=== PATIENT | male | born 1970 | race Caucasian/White ===

== ENCOUNTER 2017-05-19 11:36 | Emergency (ER) | payer BC ==
[~2017-05-19] VITALS: Ht 177.8 cm; Wt 72.6 kg
[~2017-05-19 11:36] MED LIST: SPIR25TA PO
[2017-05-19 11:52] VITALS: BP 143/84
--- NOTE | 2017-05-19 12:47 | RAD ---
4 views left knee radiograph 05/19/2017 Clinical indication: Fall with pain on knee cap. Comparison: None. Findings: There is a mildly comminuted minimally distracted fracture of the patella with a dominant transverse fracture component extending to the articular surface with the femur. There is moderate prepatellar soft tissue thickening. There is a moderate suprapatellar joint effusion. Impression: 1. Mildly comminuted and minimally distracted fracture of the patella with intra-articular extension. 2. Moderate prepatellar soft tissue swelling and moderate suprapatellar joint effusion.
[2017-05-19] MEDS ORDERED: HYDROcodone/APAP 5/325MG 1 TAB TABLET PO ONE (13:00)
[2017-05-19] MEDS ORDERED: HYDR-971 PO (13:03)
--- NOTE | 2017-05-19 13:04 | PHYS DOC ---
Past Medical History Past Medical History: Alcoholism, Hypertension, Hepatitis, Liver Disease Additional Past Medical Histor: HEPC, LIVER CIRRHOSIS Past Surgical History: Other Additional Past Surgical Histo: paracentesis Alcohol Use: Sober Drug Use: None Adult General Chief Complaint Chief Complaint: KNEE INJURY HPI HPI Patient is a 47 year old male presents to the emergency department stating that he fell on his left knee yesterday. He states when he fell he landed on the concrete. He states that knee pain since the incident. He states he has increased pain with trying to straighten the leg. He states he cannot straighten the leg. He is unable to bear weight on the left leg. He states he has numbness and tingling into the toes. Patient does have swelling noted into the lower leg. Peripheral pulses are 2+ cap refill brisk less than 2 seconds. Patient has not taken anything for pain or discomfort. Review of Systems Review of Systems Constitutional: Denies fever or chills [] Eyes: Denies change in visual acuity, redness, or eye pain [] HENT: Denies nasal congestion or sore throat [] Respiratory: Denies cough or shortness of breath [] Cardiovascular: No additional information not addressed in HPI [] GI: Denies abdominal pain, nausea, vomiting, bloody stools or diarrhea [] : Denies dysuria or hematuria [] Musculoskeletal: Denies back pain. Complaining of left knee pain Integument: Denies rash or skin lesions [] Neurologic: Denies headache, focal weakness or sensory changes [] Endocrine: Denies polyuria or polydipsia [] All other systems were reviewed and found to be within normal limits, except as documented in this note. Allergies Allergies Allergies Coded Allergies Type Severity Reaction Last Updated Verified codeine Allergy Intermediate 05/10/17 Yes Physical Exam Physical Exam Constitutional: Well developed, well nourished, no acute distress, non-toxic appearance. [] HENT: Normocephalic, atraumatic, bilateral external ears normal, oropharynx moist, no oral exudates, nose normal. [] Eyes: PERRLA, EOMI, conjunctiva normal, no discharge. [] Neck: Normal range of motion, no tenderness, supple, no stridor. [] Cardiovascular:Heart rate regular rhythm Lungs & Thorax: Bilateral breath sounds clear to auscultation [] Skin: Warm, dry, no erythema, no rash. [] Extremities: Left knee tenderness noted over the patella, no cyanosis, no clubbing, ROM intact, no edema. Peripheral pulses 2+ cap refill brisk less than 2 seconds. Neurologic: Alert and oriented X 3, normal motor function, normal sensory function, no focal deficits noted. [] Psychologic: Affect normal, judgement normal, mood normal. [] Current Patient Data Vital Signs Vital Signs Date Time Temp Pulse Resp B/P (MAP) Pulse Ox O2 Delivery O2 Flow Rate FiO2 05/19/17 11:52 98.6 100 22 94 Room Air 98.6 EKG EKG [] Radiology/Procedures Radiology/Procedures [][facility] [address] [place] [address] IMAGING REPORT Signed PATIENT: DOM MON ACCOUNT: [id number] : 1970 LOCATION: ER AGE: 47 SEX: M EXAM STATUS: REG ER ORD. PHYSICIAN: LUIS JOVEL APRN REASON: unable to bear wieght and pain PROCEDURE: KNEE LEFT 4V 4 views left knee radiograph 05/19/2017 Clinical indication: Fall with pain on knee cap. Comparison: None. Findings: There is a mildly comminuted minimally distracted fracture of the patella with a dominant transverse fracture component extending to the articular surface with the femur. There is moderate prepatellar soft tissue thickening. There is a moderate suprapatellar joint effusion. Impression: 1. Mildly comminuted and minimally distracted fracture of the patella with intra-articular extension. 2. Moderate prepatellar soft tissue swelling and moderate suprapatellar joint effusion. DICTATED and SIGNED BY: ABIGAIL PATE MD DATE: 05/19/17 1240 CC: LUIS JOVEL APRN; NO PCP ~ Course & Med Decision Making Course & Med Decision Making Pertinent Labs and Imaging studies reviewed. (See chart for details) Radiology patient is a mildly comminuted and minimally distracted fracture of the patella with intra-articular extension. Also states that there is moderate prepatellar soft tissue swelling and moderate suprapatellar joint effusion. Patient was provided with hydrocodone here in the emergency department. He'll be provided with a knee immobilizer and crutches with recommendations to follow up with orthopedic in the next 3-5 days. Signs and symptoms return back to respond has been provided. Patient was also instructed to use ice packs on 20 minutes off 20 minutes several times daily elevation as much as possible. I've spoken with the patient and/or caregivers. I've explained the patient's condition, diagnosis and treatment plan based on information available to me at this time. I've answered the patient's and/or caregivers questions and addressed any concerns. The patient and/or caregivers have a good understanding the patient's diagnosis, condition and treatment plan as can be expected at this point. Vital signs have been stabilized. The patient's condition is stable for discharge from the emergency department. The patient will pursue further outpatient evaluation with her primary care provider or other designated consulting physician as outlined in the discharge instructions. Patient and/or caregivers are agreeable to this plan of care and follow-up instructions have been explained in detail. The patient and/or caregivers have received these instructions in written format and expressed understanding of these discharge instructions. The patient and her caregivers are aware that if any significant change in condition or worsening of symptoms should prompt him to immediately return to this of the closest emergency department. If an emergent department is not readily available I would encourage him to call 911. [] Dragon Disclaimer Dragon Disclaimer This electronic medical record was generated, in whole or in part, using a voice recognition dictation system. Departure Departure Impression: Primary Impression: Patella fracture Disposition: HOME, SELF-CARE Condition: STABLE Referrals: NO PCP (PCP) NAM MCKEON MD Patient Instructions: Crutch Use, [id number], Knee Immobilizer, [id number] , Patellar Fracture, Adult Additional Instructions: Activity as tolerated Wear the knee immobilizer until you followup with orthopedic Ice packs on 20 minutes and off 20 minutes several times a day Elevation as much as possible Odd will cause drowsiness do not take if you need to be alert and oriented Followup with orthopedic in 3-5 days Return to emergency department as needed for signs and symptoms that become worse Scripts Hydrocodone/Apap 5-325 (NORCO 5-325 TABLET) 1 Each Tablet 1 TAB PO PRN Q6HRS Y for PAIN, #20 TAB 0 Refills Prov: LUIS JOVEL COIL INSPECTOR 05/19/17 Problem Qualifiers Primary Impression: Patella fracture Encounter type: initial encounter Fracture type: closed Fracture alignment : nondisplaced Laterality: left LUIS JOVEL APRN May 19, 2017 13:04
== END 2017-05-19 13:18 | disposition home or self-care (01) ==
LOC: ER 11:36
DX: S82.045A Nondisplaced comminuted fracture of left patella, initial encounter for closed fracture (principal); I10 Essential (primary) hypertension; Z88.5 Allergy status to narcotic agent; W18.39XA Other fall on same level, initial encounter; Y93.89 Activity, other specified; Y99.8 Other external cause status; Y92.89 Other specified places as the place of occurrence of the external cause
CPT/HCPCS: 29505; 73564; 99284-25

== ENCOUNTER 2017-05-25 20:47 | Inpatient (IN) | payer BC ==
[~2017-05-25] VITALS: Ht 177.8 cm; Wt 76.7 kg
[~2017-05-25 20:47] MED LIST changes: +HYDR-971 PO
[2017-05-25] MEDS ORDERED: KETOROLAC 30 MG/ML INJ. IV ONE (21:45)
[2017-05-25] MEDS ORDERED: IV NORMAL SALINE 1000ML BAG 1,000 ML IV SCH (21:45)
[2017-05-25 21:48] LABS: BASO % 0 % (0-3); EOS % 1 % (0-3); HEMATOCRIT 41.4 % (39.0-53.0); HEMOGLOBIN 14.5 g/dL (13.0-17.5); LYMPH # 1.6 x10^3/uL (1.0-4.8); LYMPH % 17 % (24-48); MEAN CORPUSCULAR HEMOGLOBIN 35 pg (25-35); MEAN CORPUSCULAR HGB CONC 35 g/dL (31-37); MEAN CORPUSCULAR VOLUME 100 fL (79-100); MONO % 8 % (0-9); NEUT % 74 % (31-73); PLATELET COUNT 135 x10^3/uL (140-400); RED BLOOD COUNT 4.16 x10^6/uL (4.30-5.70); RED CELL DISTRIBUTION WIDTH 13.9 % (11.5-14.5); WHITE BLOOD COUNT 9.5 x10^3/uL (4.0-11.0)
[2017-05-25 21:50] LABS: BILIRUBIN,URINE NEGATIVE (NEG); GLUCOSE,URINE NEGATIVE (NEG); NITRITE,URINE NEGATIVE (NEG); PROTEIN,URINE NEGATIVE (NEG-TRACE)
[2017-05-25 21:57] LABS: CALCIUM 8.6 mg/dL (8.5-10.1); CREATININE 0.7 mg/dL (0.7-1.3); GFR 119.9; POTASSIUM 4.2 mmol/L (3.5-5.1)
[2017-05-25 22:00] LABS: BACTERIA,URINE 0 /HPF (0-FEW); RBC,URINE 0 /HPF (0-2); SQUAMOUS EPITHELIAL CELL,UR OCC /LPF; WBC,URINE OCC /HPF (0-4)
[2017-05-25 22:03] LABS: ALBUMIN 2.2 g/dL (3.4-5.0); ALBUMIN/GLOBULIN RATIO 0.4 (1.0-1.7); TOTAL BILIRUBIN 1.9 mg/dL (0.2-1.0); TOTAL PROTEIN 8.4 g/dL (6.4-8.2)
[2017-05-25] MEDS ORDERED: IOHEXOL 300 MG/ML 100ML VIAL. IV ONE (22:15)
[2017-05-25] MEDS ORDERED: CONTRAST GIVEN MC PRN (22:15)
[2017-05-25 22:17] LABS: BARBITURATES NEG (NEG); BENZODIAZEPINES NEG (NEG); CANNABINOIDS POS (NEG); COCAINE NEG (NEG); METHADONE NEG (NEG); OPIATES POS (NEG); PHENCYCLIDINE NEG (NEG)
--- NOTE | 2017-05-25 22:42 | RAD ---
CT scan of the abdomen and pelvis with contrast 05/25/2017 CLINICAL HISTORY: Abdominal pain and distention. Hepatitis C. Cirrhosis. Technique: After the intravenous administration of 75 cc of Omnipaque 300, contiguous, 5 mm axial sections were obtained through the abdomen and pelvis. One or more of the following individualized dose reduction techniques were utilized for this study: 1. Automated exposure control. 2. Adjustment of the mA and/or kV according to patient size. 3. Use of iterative reconstruction technique. FINDINGS: Images through the lung bases demonstrate minimal dependent subsegmental atelectasis bilaterally. The liver has a nodular contour consistent with cirrhosis. The spleen, pancreas, adrenal glands and kidneys are within normal limits. Mild to moderate atherosclerotic plaque formation is seen involving the abdominal aorta. The abdominal aorta tapers normally. The gallbladder slightly contracted. A large amount of ascites is seen throughout the abdomen. There is no evidence of bowel obstruction. The appendix is partially visualized and is within normal limits. Images through the pelvis demonstrate the urinary bladder to be contracted. Calcifications are seen within the prostate gland. A large amount of ascites is seen throughout the pelvis. Minimal S-shaped curvature of the thoracolumbar spine is seen. Degenerative changes are seen involving lower thoracic and throughout the lumbar spine. IMPRESSION: Findings consistent with cirrhosis. Large amount of ascites is seen throughout the abdomen and pelvis. Electronically signed by: Jose Saucedo MD (05/25/2017 10:39 PM) [facility]
[2017-05-26] VITALS (13 sets, daily range): BP systolic 111–173; BP diastolic 74–106
[2017-05-26] MEDS ORDERED: ONDANSETRON PF 4 MG/2 ML VIAL. IV PRN (01:00)
[2017-05-26] MEDS: IV NORMAL SALINE 1000ML BAG 1,000 ML IV SCH ×4 (02:01→23:11)
[2017-05-26] MEDS: MORPHINE SULFATE 2 MG/ML DISP.SYRIN. IV PRN ×2 (02:02→05:29)
--- NOTE | 2017-05-26 08:52 | PDOC1 ---
History and Physical Date of Admission Date of Admission DATE: 05/26/17 TIME: 08:50 History of Present Illness History of Present Illness ncreasing abd distention, BLE swelling, decreased appetite, and constipation ( last BM 4 days ago) over the past few days. Stopped drinking a few weeks ago, previously was drinking 24oz of 10.5% alcohol daily. No n/v, hematemesis, dysphagia, diarrhea, hematochezia, melena. Occasional heartburn, untreated, No previous colonoscopy. No gallbladder or pancreatic history. PMH: Hep C, substance abuse, cirrhosis/ascites, GERD, HSV, paracentesis FH: Family History: Other (adopted) Social History: Smoke: 1 pack per day ALCOHOL: other (sober a few weeks, h/o alcoholism) Drugs: Marijuana ROS: GEN: Denies fevers, chills, sweats HEENT: Denies blurred vision, sore throat CV: Denies chest pain RESP: Denies shortness of air, cough GI: Per HPI : Denies hematuria, dysuria ENDO: +fluctuating weight NEURO: Denies confusion, dizziness MSK: +BLE swelling SKIN: +pruritus Reason for Visit: seen in ER with increased abdominal distension, leg edema Past Medical History GI: Constipation, Other Past Surgical History Past Surgical History: No pertinent history Family History Family History: No Significant Social History ALCOHOL: other Drugs: Marijuana Current Medications Current Medications Current Medications Sodium Chloride 1,000 ml @ 999 mls/hr Q1H1M IV Last administered on 21:54; Start 05/25/17 at 21:45; Stop 05/25/17 at 22:45; Status DC Ketorolac Tromethamine (Toradol) 15 mg 1X ONCE IV Last administered on 21:54; Start 05/25/17 at 21:45; Stop 05/25/17 at 21:46; Status DC Iohexol (Omnipaque 300 Mg/ml) 75 ml 1X ONCE IV Last administered on 22:16; Start 05/25/17 at 22:15; Stop 05/25/17 at 22:16; Status DC Info (Do NOT chart on this entry -- for MONITORING) 1 each PRN DAILY PRN MC SEE COMMENTS; Start 05/25/17 at 22:15; Stop 05/27/17 at 22:14 Ondansetron HCl (Zofran) 4 mg PRN Q8HRS PRN IV NAUSEA/VOMITING; Start at 01:00; Stop 05/27/17 at 00:59 Morphine Sulfate 2 mg PRN Q2HR PRN IV PAIN Last administered on 05/26/17 05: 29; Start 05/26/17 at 01:00; Stop 05/27/17 at 00:59 Sodium Chloride 1,000 ml @ 150 mls/hr Q6H40M IV Last administered on 02:01; Start 05/26/17 at 01:00; Stop 05/27/17 at 00:59 Active Scripts Active [place] 5-325 Tablet (Acetaminophen/Hydrocodone Bitart) 1 Each Tablet 1 Tab PO PRN Q6HRS PRN Aldactone (Spironolactone) 25 Mg Tablet 100 Mg PO DAILY 30 Days Allergies Allergies: Coded Allergies: codeine (Verified Allergy, Intermediate, 05/10/17) chest pain Physical Exam Physical Exam General: Alert, Oriented X3, Cooperative, No acute distress HEENT: Other (multiple bumps like scarred acne o n face, neck, trunk and nape) Lungs: Clear to auscultation, Normal air movement Heart: S1S2 Cardiovascular: S1, S2 Breasts: Normal, Rt breast nml w/o mass, Lt breast nml w/o mass, Nipples normal Abdomen: Soft, Other (Rt sided band aid from large vol paracentesis, moderate tendermess, no guarding) Extremities: No clubbing, No cyanosis, No edema, Normal pulses, No tenderness/ swelling Skin: No rashes, No breakdown, No significant lesion Neuro: Normal gait, Normal speech, Strength at 5/5 X4 ext, Normal tone, Sensation intact, Cranial nerves 3-12 NL, Reflexes 2+ Psych/Mental Status: Mental status NL, Mood NL Patient History: Unknown (Patient is adopted and does not know any biological family) Problems: Vitals Vitals Vital Signs Date Time Temp Pulse Resp B/P (MAP) Pulse Ox O2 Delivery O2 Flow Rate FiO2 05/26/17 06:50 98.1 71 18 116/74 (88) 98 Room Air 98.1 Labs Labs Laboratory Tests Test 05/25/17 20:55 05/25/17 21:09 Urine Collection Type Unknown Urine Color Bonnie Urine Clarity Clear Urine pH 6.0 Urine Specific Edison >=1.030 Urine Protein Negative mg/dL (NEG-TRACE) Urine Glucose (UA) Negative mg/dL (NEG) Urine Ketones (Stick) Negative mg/dL (NEG) Urine Blood Negative (NEG) Urine Nitrite Negative (NEG) Urine Bilirubin Negative (NEG) Urine Urobilinogen Dipstick 1.0 mg/dL (0.2 mg/dL) Urine Leukocyte Esterase Trace (NEG) Urine RBC 0 /HPF (0-2) Urine WBC Occ /HPF (0-4) Urine Squamous Epithelial Cells Occ /LPF Urine Amorphous Sediment Present /HPF Urine Bacteria 0 /HPF (0-FEW) Urine Hyaline Casts Occasional /HPF Urine Mucus Mod /LPF Urine Opiates Screen Pos (NEG) Urine Methadone Screen Neg (NEG) Urine Barbiturates Neg (NEG) Urine Phencyclidine Screen Neg (NEG) Urine Amphetamine/Methamphetamine Neg (NEG) Urine Benzodiazepines Screen Neg (NEG) Urine Cocaine Screen Neg (NEG) Urine Cannabinoids Screen Pos (NEG) Urine Ethyl Alcohol Neg (NEG) White Blood Count 9.5 x10^3/uL (4.0-11.0) Red Blood Count 4.16 x10^6/uL (4.30-5.70) Hemoglobin 14.5 g/dL (13.0-17.5) Hematocrit 41.4 % (39.0-53.0) Mean Corpuscular Volume 100 fL (79-100) Mean Corpuscular Hemoglobin 35 pg (25-35) Mean Corpuscular Hemoglobin Concent 35 g/dL (31-37) Red Cell Distribution Width 13.9 % (11.5-14.5) Platelet Count 135 x10^3/uL (140-400) Neutrophils (%) (Auto) 74 % (31-73) Lymphocytes (%) (Auto) 17 % (24-48) Monocytes (%) (Auto) 8 % (0-9) Eosinophils (%) (Auto) 1 % (0-3) Basophils (%) (Auto) 0 % (0-3) Neutrophils # (Auto) 7.0 x10^3uL (1.8-7.7) Lymphocytes # (Auto) 1.6 x10^3/uL (1.0-4.8) Monocytes # (Auto) 0.8 x10^3/uL (0.0-1.1) Eosinophils # (Auto) 0.1 x10^3/uL (0.0-0.7) Basophils # (Auto) 0.0 x10^3/uL (0.0-0.2) Sodium Level 129 mmol/L (136-145) Potassium Level 4.2 mmol/L (3.5-5.1) Chloride Level 97 mmol/L (98-107) Carbon Dioxide Level 28 mmol/L (21-32) Anion Gap 4 (6-14) Blood Urea Nitrogen 18 mg/dL (8-26) Creatinine 0.7 mg/dL (0.7-1.3) Estimated GFR (Cockcroft-Gault) 119.9 BUN/Creatinine Ratio 26 (6-20) Glucose Level 97 mg/dL (70-99) Calcium Level 8.6 mg/dL (8.5-10.1) Total Bilirubin 1.9 mg/dL (0.2-1.0) Aspartate Amino Transf (AST/SGOT) 83 U/L (15-37) Alanine Aminotransferase (ALT/SGPT) 60 U/L (16-63) Alkaline Phosphatase 125 U/L (46-116) Total Protein 8.4 g/dL (6.4-8.2) Albumin 2.2 g/dL (3.4-5.0) Albumin/Globulin Ratio 0.4 (1.0-1.7) Lipase 189 U/L (73-393) Laboratory Tests Test 05/25/17 20:55 05/25/17 21:09 Urine Collection Type Unknown Urine Color Bonnie Urine Clarity Clear Urine pH 6.0 Urine Specific Edison >=1.030 Urine Protein Negative mg/dL (NEG-TRACE) Urine Glucose (UA) Negative mg/dL (NEG) Urine Ketones (Stick) Negative mg/dL (NEG) Urine Blood Negative (NEG) Urine Nitrite Negative (NEG) Urine Bilirubin Negative (NEG) Urine Urobilinogen Dipstick 1.0 mg/dL (0.2 mg/dL) Urine Leukocyte Esterase Trace (NEG) Urine RBC 0 /HPF (0-2) Urine WBC Occ /HPF (0-4) Urine Squamous Epithelial Cells Occ /LPF Urine Amorphous Sediment Present /HPF Urine Bacteria 0 /HPF (0-FEW) Urine Hyaline Casts Occasional /HPF Urine Mucus Mod /LPF Urine Opiates Screen Pos (NEG) Urine Methadone Screen Neg (NEG) Urine Barbiturates Neg (NEG) Urine Phencyclidine Screen Neg (NEG) Urine Amphetamine/Methamphetamine Neg (NEG) Urine Benzodiazepines Screen Neg (NEG) Urine Cocaine Screen Neg (NEG) Urine Cannabinoids Screen Pos (NEG) Urine Ethyl Alcohol Neg (NEG) White Blood Count 9.5 x10^3/uL (4.0-11.0) Red Blood Count 4.16 x10^6/uL (4.30-5.70) Hemoglobin 14.5 g/dL (13.0-17.5) Hematocrit 41.4 % (39.0-53.0) Mean Corpuscular Volume 100 fL (79-100) Mean Corpuscular Hemoglobin 35 pg (25-35) Mean Corpuscular Hemoglobin Concent 35 g/dL (31-37) Red Cell Distribution Width 13.9 % (11.5-14.5) Platelet Count 135 x10^3/uL (140-400) Neutrophils (%) (Auto) 74 % (31-73) Lymphocytes (%) (Auto) 17 % (24-48) Monocytes (%) (Auto) 8 % (0-9) Eosinophils (%) (Auto) 1 % (0-3) Basophils (%) (Auto) 0 % (0-3) Neutrophils # (Auto) 7.0 x10^3uL (1.8-7.7) Lymphocytes # (Auto) 1.6 x10^3/uL (1.0-4.8) Monocytes # (Auto) 0.8 x10^3/uL (0.0-1.1) Eosinophils # (Auto) 0.1 x10^3/uL (0.0-0.7) Basophils # (Auto) 0.0 x10^3/uL (0.0-0.2) Sodium Level 129 mmol/L (136-145) Potassium Level 4.2 mmol/L (3.5-5.1) Chloride Level 97 mmol/L (98-107) Carbon Dioxide Level 28 mmol/L (21-32) Anion Gap 4 (6-14) Blood Urea Nitrogen 18 mg/dL (8-26) Creatinine 0.7 mg/dL (0.7-1.3) Estimated GFR (Cockcroft-Gault) 119.9 BUN/Creatinine Ratio 26 (6-20) Glucose Level 97 mg/dL (70-99) Calcium Level 8.6 mg/dL (8.5-10.1) Total Bilirubin 1.9 mg/dL (0.2-1.0) Aspartate Amino Transf (AST/SGOT) 83 U/L (15-37) Alanine Aminotransferase (ALT/SGPT) 60 U/L (16-63) Alkaline Phosphatase 125 U/L (46-116) Total Protein 8.4 g/dL (6.4-8.2) Albumin 2.2 g/dL (3.4-5.0) Albumin/Globulin Ratio 0.4 (1.0-1.7) Lipase 189 U/L (73-393) Images Images REASON: ap PROCEDURE: CT ABD PELV W/ IV CONTRST ONLY CT scan of the abdomen and pelvis with contrast 05/25/2017 CLINICAL HISTORY: Abdominal pain and distention. Hepatitis C. Cirrhosis. Technique: After the intravenous administration of 75 cc of Omnipaque 300, contiguous, 5 mm axial sections were obtained through the abdomen and pelvis. One or more of the following individualized dose reduction techniques were utilized for this study: 1. Automated exposure control. 2. Adjustment of the mA and/or kV according to patient size. 3. Use of iterative reconstruction technique. FINDINGS: Images through the lung bases demonstrate minimal dependent subsegmental atelectasis bilaterally. The liver has a nodular contour consistent with cirrhosis. The spleen, pancreas, adrenal glands and kidneys are within normal limits. Mild to moderate atherosclerotic plaque formation is seen involving the abdominal aorta. The abdominal aorta tapers normally. The gallbladder slightly contracted. A large amount of ascites is seen throughout the abdomen. There is no evidence of bowel obstruction. The appendix is partially visualized and is within normal limits. Images through the pelvis demonstrate the urinary bladder to be contracted. Calcifications are seen within the prostate gland. A large amount of ascites is seen throughout the pelvis. Minimal S-shaped curvature of the thoracolumbar spine is seen. Degenerative changes are seen involving lower thoracic and throughout the lumbar spine. IMPRESSION: Findings consistent with cirrhosis. Large amount of ascites is seen throughout the abdomen and pelvis. Electronically signed by: Jose Del Rio MD (05/25/2017 10:39 PM) [facility] DICTATED and SIGNED BY: JOSE DEL RIO MD DATE: 05/25/17 2234 CC: LEXIS RINCON MD; NO PCP ~ VTE Prophylaxis Ordered VTE Prophylaxis Devices: No VTE Pharmacological Prophylaxi: Yes Assessment/Plan Assessment/Plan Admitting Diagnosis 1. ascites , needs paracentesis for massive ascites (drained > 9L 05/11/17) 2 Cirrhosis, with HEp c and ETOH 3. Thrombocytopenia with cirrhosis 4, Hyponatremia with cirrhosis 5 Mod to severe PCM 6. Leg swelling 7. THC Abuse 8. tobacco abuse 9. hx alcohol abuse DARRELL AGUDELO MD May 26, 2017 08:52
--- NOTE | 2017-05-26 09:38 | PDOC ---
Subjective: Subjective: Has been taking Aldactone 100mg QD, abd distention and BLE swelling (left>right ) returned. Fell and broke patella (left) last week, says was seen at [facility] (also has an ER note from here on 05/19). Says not drinking alcohol - tells me last drink in December, inconsistent w/ previous history. Decreased PO intake, some constipation. Objective: Objective: 47 y/o male, see GI consult from 05/11/17. H/o cirrhosis and ascites, Hep C and alcohol. Previous paracentesis, last on 05/11, removed 9.2L. Vital Signs: Vital Signs Date Time Temp Pulse Resp B/P (MAP) Pulse Ox O2 Delivery O2 Flow Rate FiO2 05/26/17 06:50 98.1 71 18 116/74 (88) 98 Room Air 98.1 Labs: Laboratory Tests Test 05/25/17 20:55 05/25/17 21:09 Urine Collection Type Unknown Urine Color Bonnie Urine Clarity Clear Urine pH 6.0 Urine Specific [place] >=1.030 Urine Protein Negative mg/dL Urine Glucose (UA) Negative mg/dL Urine Ketones (Stick) Negative mg/dL Urine Blood Negative Urine Nitrite Negative Urine Bilirubin Negative Urine Urobilinogen Dipstick 1.0 mg/dL Urine Leukocyte Esterase Trace Urine RBC 0 /HPF Urine WBC Occ /HPF Urine Squamous Epithelial Cells Occ /LPF Urine Amorphous Sediment Present /HPF Urine Bacteria 0 /HPF Urine Hyaline Casts Occasional /HPF Urine Mucus Mod /LPF Urine Opiates Screen Pos Urine Methadone Screen Neg Urine Barbiturates Neg Urine Phencyclidine Screen Neg Urine Amphetamine/Methamphetamine Neg Urine Benzodiazepines Screen Neg Urine Cocaine Screen Neg Urine Cannabinoids Screen Pos Urine Ethyl Alcohol Neg White Blood Count 9.5 x10^3/uL Red Blood Count 4.16 x10^6/uL Hemoglobin 14.5 g/dL Hematocrit 41.4 % Mean Corpuscular Volume 100 fL Mean Corpuscular Hemoglobin 35 pg Mean Corpuscular Hemoglobin Concent 35 g/dL Red Cell Distribution Width 13.9 % Platelet Count 135 x10^3/uL Neutrophils (%) (Auto) 74 % Lymphocytes (%) (Auto) 17 % Monocytes (%) (Auto) 8 % Eosinophils (%) (Auto) 1 % Basophils (%) (Auto) 0 % Neutrophils # (Auto) 7.0 x10^3uL Lymphocytes # (Auto) 1.6 x10^3/uL Monocytes # (Auto) 0.8 x10^3/uL Eosinophils # (Auto) 0.1 x10^3/uL Basophils # (Auto) 0.0 x10^3/uL Sodium Level 129 mmol/L Potassium Level 4.2 mmol/L Chloride Level 97 mmol/L Carbon Dioxide Level 28 mmol/L Anion Gap 4 Blood Urea Nitrogen 18 mg/dL Creatinine 0.7 mg/dL Estimated GFR (Cockcroft-Gault) 119.9 BUN/Creatinine Ratio 26 Glucose Level 97 mg/dL Calcium Level 8.6 mg/dL Total Bilirubin 1.9 mg/dL Aspartate Amino Transf (AST/SGOT) 83 U/L Alanine Aminotransferase (ALT/SGPT) 60 U/L Alkaline Phosphatase 125 U/L Total Protein 8.4 g/dL Albumin 2.2 g/dL Albumin/Globulin Ratio 0.4 Lipase 189 U/L Imaging: CT A/P 05/25/17 IMPRESSION: Findings consistent with cirrhosis. Large amount of ascites is seen throughout the abdomen and pelvis. Abd US 05/11/17 IMPRESSION: 1. The gallbladder is filled with sludge. Gallbladder wall thickening is nonspecific and most likely reflects liver disease. Correlate for evidence of infection to exclude cholecystitis. 2. Diffuse hepatic steatosis and cirrhotic change. 3. Small to moderate perihepatic ascites. PE: GEN: NAD, standing in room (says doesn't want to sit) LUNGS: clear HEART: RRR ABD: significantly distended, tight EXTREMITY: LLE edema - prominent from knee to foot, NEURO/PSYCH: A & O 3 A/P: Cirrhosis, ascites -Hep C, alcohol -last paracentesis 05/11, 9.2 L removed, sent home on Aldactone (says taking 100mg QD) -bili 1.9, AP 125, plt 136 -imaging above, AFP previously WNL Left patellar fracture, LE edema (left>right) -per primary Hyponatremia -- Check ammonia, also INR to calculate MELD. Ate breakfast, make NPO, ask for repeat paracentesis. Reviewed w/ Dr. Chaudhari - resume Aldactone 100mg QD. ?TIPS candidate MELD (w/ sodium) = 21 (19.6% 3 month mortality). MANUELITO BRISCOE May 26, 2017 09:38
[2017-05-26 09:59] LABS: INR 1.6 (0.8-1.1); PROTHROMBIN TIME PATIENT 18.3 SEC (11.7-14.0)
[2017-05-26] MEDS: SPIRONOLACTONE 25 MG TABLET PO SCH (11:00)
[2017-05-26] MEDS ORDERED: MORPHINE SULFATE 10 MG/ML VIAL. ONE (13:34)
[2017-05-26] MEDS ORDERED: LIDOCAINE 1% / SOD BICARB 8.4% 20 ML VIAL. IJ ONE ×2 (13:35→14:00)
[2017-05-26] MEDS ORDERED: MORPHINE SULFATE 4 MG/ML DISP.SYRIN. IV ONE (13:38)
[2017-05-26] MEDS ORDERED: MORPHINE SULFATE 10 MG/ML VIAL. IV ONE (13:45)
[2017-05-26] MEDS ORDERED: ALBUMIN HUMAN 25% 200 ML IV ONE (14:34)
[2017-05-26] MEDS ORDERED: ALBUMIN HUMAN 25% 100 ML IV ONE ×2 (14:35→15:45)
[2017-05-26] MEDS: NICOTINE 21MG PATCH. TD SCH (15:28)
[2017-05-26] MEDS: HYDROcodone/APAP 5/325MG 1 TAB TABLET PO PRN (15:29)
--- NOTE | 2017-05-26 16:47 | RAD ---
Ultrasound-guided paracentesis 05/26/2017 3:35 PM Procedure: Informed consent was obtained. A timeout procedure was performed. Sonographic evaluation of the abdomen was performed demonstrating . The e right lower quadrant was prepped and draped in sterile fashion. 1% lidocaine without epinephrine was administered for local anesthesia. Real-time ultrasonographic guidance was used in passing a 5 Bulgarian Yueh catheter into the fluid collection. 9.1 L of serous ascites was removed. The catheter was removed and pressure held to achieve hemostasis. A sterile dressing was applied. Impression: Successful ultrasound-guided paracentesis
[2017-05-26] MEDS ORDERED: ACETAMINOPHEN 325 MG TABLET. PO PRN (20:45)
[2017-05-27] MEDS: HYDROcodone/APAP 5/325MG 1 TAB TABLET PO PRN ×4 (01:58→20:34)
[2017-05-27 03:00] VITALS: BP 143/89
[2017-05-27 07:00] VITALS: BP 120/84
[2017-05-27] MEDS: NICOTINE 21MG PATCH. TD SCH (09:17)
[2017-05-27] MEDS: SPIRONOLACTONE 25 MG TABLET PO SCH (09:17)
[2017-05-27 10:47] VITALS: BP 123/69
--- NOTE | 2017-05-27 11:04 | PDOC ---
Subjective: Subjective: Left knee pain and swelling. "The hernia's back." Doesn't want to go to or [facility] is out of network. Objective: Vital Signs: Vital Signs Date Time Temp Pulse Resp B/P (MAP) Pulse Ox O2 Delivery O2 Flow Rate FiO2 05/27/17 10:47 97.3 90 18 123/69 (87) 97 Room Air 97.3 Labs: Laboratory Tests Test 05/26/17 11:04 Ammonia 31 mcmol/L PE: GEN: NAD LUNGS: clear HEART: RRR ABD: less distended post tap, reducible small umbilical hernia, non-tender but ticklish EXTREM: LLE w/ pitting edema, knee quite tender NEURO/PSYCH: A & O 3 A/P: Cirrhosis - MELD 17 (6% 3 month mortality) -Hep C, alcohol -ascites: paracentesis 05/11 and 05/26 ---> 9 L removed each time -AFP and ammonia WNL, thrombocytopenic -on Aldactone 100mg QD Left patellar fracture, LLE edema -per primary Hyponatremia - improved -- Defer LLE issues to primary (LE US?) Recheck basic labs, not done today. Feels he's "filling up" already ---> ?add Lasix - will review w/ Dr. Chaudhari Pt considering TIPS. MANUELITO BRISCOE May 27, 2017 11:04
[2017-05-27 12:42] LABS: BASO % 0 % (0-3); EOS % 1 % (0-3); HEMATOCRIT 37.8 % (39.0-53.0); HEMOGLOBIN 12.8 g/dL (13.0-17.5); LYMPH # 1.1 x10^3/uL (1.0-4.8); LYMPH % 13 % (24-48); MEAN CORPUSCULAR HEMOGLOBIN 33 pg (25-35); MEAN CORPUSCULAR HGB CONC 34 g/dL (31-37); MEAN CORPUSCULAR VOLUME 99 fL (79-100); MONO % 9 % (0-9); NEUT % 76 % (31-73); PLATELET COUNT 84 x10^3/uL (140-400); RED BLOOD COUNT 3.83 x10^6/uL (4.30-5.70); RED CELL DISTRIBUTION WIDTH 13.8 % (11.5-14.5); WHITE BLOOD COUNT 8.1 x10^3/uL (4.0-11.0)
[2017-05-27 12:52] LABS: ALBUMIN 2.5 g/dL (3.4-5.0); ALBUMIN/GLOBULIN RATIO 0.6 (1.0-1.7); CALCIUM 8.3 mg/dL (8.5-10.1); CREATININE 0.6 mg/dL (0.7-1.3); GFR 143.2; POTASSIUM 4.1 mmol/L (3.5-5.1); TOTAL BILIRUBIN 1.8 mg/dL (0.2-1.0)
--- NOTE | 2017-05-27 15:30 | PDOC ---
PROGRESS NOTES History of Present Illness History of Present Illness had paracentesis with 9 liters removed Vitals Vitals Vital Signs Date Time Temp Pulse Resp B/P (MAP) Pulse Ox O2 Delivery O2 Flow Rate FiO2 05/27/17 10:47 97.3 90 18 123/69 (87) 97 Room Air 97.3 Physical Exam Physical Exam hysical Exam Physical Exam General: Alert, Oriented X3, Cooperative, No acute distress HEENT: Other (multiple bumps like scarred acne o n face, neck, trunk and nape) Lungs: Clear to auscultation, Normal air movement Heart: S1S2 Cardiovascular: S1, S2 Abdomen: Soft, Other (Rt sided band aid from large vol paracentesis, mild tendermess, no guarding) Extremities: No clubbing, No cyanosis, No edema, Normal pulses, No tenderness/ swelling Skin: No rashes, No breakdown, No significant lesion Neuro: Normal gait, Normal speech, Strength at 5/5 X4 ext, Normal tone, Sensation intact, Cranial nerves 3-12 NL, Psych/Mental Status: Mental status NL, Mood NL knee tender Patient History: Unknown (Patient is adopted and does not know any biological family) General: Alert, Oriented X3, Cooperative Heart: Regular rate Lungs: Clear Abdomen: Soft Extremities: No cyanosis Labs LABS Ultrasound-guided paracentesis 05/26/2017 3:35 PM Procedure: Informed consent was obtained. A timeout procedure was performed. Sonographic evaluation of the abdomen was performed demonstrating . The e right lower quadrant was prepped and draped in sterile fashion. 1% lidocaine without epinephrine was administered for local anesthesia. Real-time ultrasonographic guidance was used in passing a 5 Chinese SoFieh catheter into the fluid collection. 9.1 L of serous ascites was removed. The catheter was removed and pressure held to achieve hemostasis. A sterile dressing was applied. Impression: Successful ultrasound-guided paracentesis Laboratory Tests Test 05/27/17 12:15 White Blood Count 8.1 x10^3/uL (4.0-11.0) Red Blood Count 3.83 x10^6/uL (4.30-5.70) Hemoglobin 12.8 g/dL (13.0-17.5) Hematocrit 37.8 % (39.0-53.0) Mean Corpuscular Volume 99 fL (79-100) Mean Corpuscular Hemoglobin 33 pg (25-35) Mean Corpuscular Hemoglobin Concent 34 g/dL (31-37) Red Cell Distribution Width 13.8 % (11.5-14.5) Platelet Count 84 x10^3/uL (140-400) Neutrophils (%) (Auto) 76 % (31-73) Lymphocytes (%) (Auto) 13 % (24-48) Monocytes (%) (Auto) 9 % (0-9) Eosinophils (%) (Auto) 1 % (0-3) Basophils (%) (Auto) 0 % (0-3) Neutrophils # (Auto) 6.1 x10^3uL (1.8-7.7) Lymphocytes # (Auto) 1.1 x10^3/uL (1.0-4.8) Monocytes # (Auto) 0.8 x10^3/uL (0.0-1.1) Eosinophils # (Auto) 0.1 x10^3/uL (0.0-0.7) Basophils # (Auto) 0.0 x10^3/uL (0.0-0.2) Sodium Level 134 mmol/L (136-145) Potassium Level 4.1 mmol/L (3.5-5.1) Chloride Level 101 mmol/L (98-107) Carbon Dioxide Level 27 mmol/L (21-32) Anion Gap 6 (6-14) Blood Urea Nitrogen 12 mg/dL (8-26) Creatinine 0.6 mg/dL (0.7-1.3) Estimated GFR (Cockcroft-Gault) 143.2 BUN/Creatinine Ratio 20 (6-20) Glucose Level 100 mg/dL (70-99) Calcium Level 8.3 mg/dL (8.5-10.1) Total Bilirubin 1.8 mg/dL (0.2-1.0) Aspartate Amino Transf (AST/SGOT) 54 U/L (15-37) Alanine Aminotransferase (ALT/SGPT) 46 U/L (16-63) Alkaline Phosphatase 91 U/L (46-116) Total Protein 7.0 g/dL (6.4-8.2) Albumin 2.5 g/dL (3.4-5.0) Albumin/Globulin Ratio 0.6 (1.0-1.7) Review of Systems Review of Systems knee pain Assessment and Plan Assessmemt and Plan VTE Prophylaxis Ordered VTE Prophylaxis Devices: No VTE Pharmacological Prophylaxi: Yes Assessment/Plan Assessment/Plan Admitting Diagnosis 1. ascites , needs paracentesis for massive ascites (drained > 9L 05/26/17) 2 Cirrhosis, with HEp c and ETOH 3. Thrombocytopenia with cirrhosis 4, Hyponatremia with cirrhosis 5 Mod to severe PCM 6. Leg swelling 7. THC Abuse 8. tobacco abuse 9. hx alcohol abuse DARRELL AGUDELO MD Problems: Comment Review of Relevant I have reviewed the following items rodriguez (where applicable) has been applied. Labs Laboratory Tests Test 05/25/17 20:55 05/25/17 21:09 05/26/17 09:10 05/26/17 11:04 Urine Collection Type Unknown Urine Color Bonnie Urine Clarity Clear Urine pH 6.0 Urine Specific [place] >=1.030 Urine Protein Negative mg/dL (NEG-TRACE) Urine Glucose (UA) Negative mg/dL (NEG) Urine Ketones (Stick) Negative mg/dL (NEG) Urine Blood Negative (NEG) Urine Nitrite Negative (NEG) Urine Bilirubin Negative (NEG) Urine Urobilinogen Dipstick 1.0 mg/dL (0.2 mg/dL) Urine Leukocyte Esterase Trace (NEG) Urine RBC 0 /HPF (0-2) Urine WBC Occ /HPF (0-4) Urine Squamous Epithelial Cells Occ /LPF Urine Amorphous Sediment Present /HPF Urine Bacteria 0 /HPF (0-FEW) Urine Hyaline Casts Occasional /HPF Urine Mucus Mod /LPF Urine Opiates Screen Pos (NEG) Urine Methadone Screen Neg (NEG) Urine Barbiturates Neg (NEG) Urine Phencyclidine Screen Neg (NEG) Urine Amphetamine/Methamphetamine Neg (NEG) Urine Benzodiazepines Screen Neg (NEG) Urine Cocaine Screen Neg (NEG) Urine Cannabinoids Screen Pos (NEG) Urine Ethyl Alcohol Neg (NEG) White Blood Count 9.5 x10^3/uL (4.0-11.0) Red Blood Count 4.16 x10^6/uL (4.30-5.70) Hemoglobin 14.5 g/dL (13.0-17.5) Hematocrit 41.4 % (39.0-53.0) Mean Corpuscular Volume 100 fL (79-100) Mean Corpuscular Hemoglobin 35 pg (25-35) Mean Corpuscular Hemoglobin Concent 35 g/dL (31-37) Red Cell Distribution Width 13.9 % (11.5-14.5) Platelet Count 135 x10^3/uL (140-400) Neutrophils (%) (Auto) 74 % (31-73) Lymphocytes (%) (Auto) 17 % (24-48) Monocytes (%) (Auto) 8 % (0-9) Eosinophils (%) (Auto) 1 % (0-3) Basophils (%) (Auto) 0 % (0-3) Neutrophils # (Auto) 7.0 x10^3uL (1.8-7.7) Lymphocytes # (Auto) 1.6 x10^3/uL (1.0-4.8) Monocytes # (Auto) 0.8 x10^3/uL (0.0-1.1) Eosinophils # (Auto) 0.1 x10^3/uL (0.0-0.7) Basophils # (Auto) 0.0 x10^3/uL (0.0-0.2) Sodium Level 129 mmol/L (136-145) Potassium Level 4.2 mmol/L (3.5-5.1) Chloride Level 97 mmol/L (98-107) Carbon Dioxide Level 28 mmol/L (21-32) Anion Gap 4 (6-14) Blood Urea Nitrogen 18 mg/dL (8-26) Creatinine 0.7 mg/dL (0.7-1.3) Estimated GFR (Cockcroft-Gault) 119.9 BUN/Creatinine Ratio 26 (6-20) Glucose Level 97 mg/dL (70-99) Calcium Level 8.6 mg/dL (8.5-10.1) Total Bilirubin 1.9 mg/dL (0.2-1.0) Aspartate Amino Transf (AST/SGOT) 83 U/L (15-37) Alanine Aminotransferase (ALT/SGPT) 60 U/L (16-63) Alkaline Phosphatase 125 U/L (46-116) Total Protein 8.4 g/dL (6.4-8.2) Albumin 2.2 g/dL (3.4-5.0) Albumin/Globulin Ratio 0.4 (1.0-1.7) Lipase 189 U/L (73-393) Prothrombin Time 18.3 SEC (11.7-14.0) Prothromb Time International Ratio 1.6 (0.8-1.1) Ammonia 31 mcmol/L (11-34) Test 05/27/17 12:15 White Blood Count 8.1 x10^3/uL (4.0-11.0) Red Blood Count 3.83 x10^6/uL (4.30-5.70) Hemoglobin 12.8 g/dL (13.0-17.5) Hematocrit 37.8 % (39.0-53.0) Mean Corpuscular Volume 99 fL (79-100) Mean Corpuscular Hemoglobin 33 pg (25-35) Mean Corpuscular Hemoglobin Concent 34 g/dL (31-37) Red Cell Distribution Width 13.8 % (11.5-14.5) Platelet Count 84 x10^3/uL (140-400) Neutrophils (%) (Auto) 76 % (31-73) Lymphocytes (%) (Auto) 13 % (24-48) Monocytes (%) (Auto) 9 % (0-9) Eosinophils (%) (Auto) 1 % (0-3) Basophils (%) (Auto) 0 % (0-3) Neutrophils # (Auto) 6.1 x10^3uL (1.8-7.7) Lymphocytes # (Auto) 1.1 x10^3/uL (1.0-4.8) Monocytes # (Auto) 0.8 x10^3/uL (0.0-1.1) Eosinophils # (Auto) 0.1 x10^3/uL (0.0-0.7) Basophils # (Auto) 0.0 x10^3/uL (0.0-0.2) Sodium Level 134 mmol/L (136-145) Potassium Level 4.1 mmol/L (3.5-5.1) Chloride Level 101 mmol/L (98-107) Carbon Dioxide Level 27 mmol/L (21-32) Anion Gap 6 (6-14) Blood Urea Nitrogen 12 mg/dL (8-26) Creatinine 0.6 mg/dL (0.7-1.3) Estimated GFR (Cockcroft-Gault) 143.2 BUN/Creatinine Ratio 20 (6-20) Glucose Level 100 mg/dL (70-99) Calcium Level 8.3 mg/dL (8.5-10.1) Total Bilirubin 1.8 mg/dL (0.2-1.0) Aspartate Amino Transf (AST/SGOT) 54 U/L (15-37) Alanine Aminotransferase (ALT/SGPT) 46 U/L (16-63) Alkaline Phosphatase 91 U/L (46-116) Total Protein 7.0 g/dL (6.4-8.2) Albumin 2.5 g/dL (3.4-5.0) Albumin/Globulin Ratio 0.6 (1.0-1.7) Laboratory Tests Test 05/27/17 12:15 White Blood Count 8.1 x10^3/uL (4.0-11.0) Red Blood Count 3.83 x10^6/uL (4.30-5.70) Hemoglobin 12.8 g/dL (13.0-17.5) Hematocrit 37.8 % (39.0-53.0) Mean Corpuscular Volume 99 fL (79-100) Mean Corpuscular Hemoglobin 33 pg (25-35) Mean Corpuscular Hemoglobin Concent 34 g/dL (31-37) Red Cell Distribution Width 13.8 % (11.5-14.5) Platelet Count 84 x10^3/uL (140-400) Neutrophils (%) (Auto) 76 % (31-73) Lymphocytes (%) (Auto) 13 % (24-48) Monocytes (%) (Auto) 9 % (0-9) Eosinophils (%) (Auto) 1 % (0-3) Basophils (%) (Auto) 0 % (0-3) Neutrophils # (Auto) 6.1 x10^3uL (1.8-7.7) Lymphocytes # (Auto) 1.1 x10^3/uL (1.0-4.8) Monocytes # (Auto) 0.8 x10^3/uL (0.0-1.1) Eosinophils # (Auto) 0.1 x10^3/uL (0.0-0.7) Basophils # (Auto) 0.0 x10^3/uL (0.0-0.2) Sodium Level 134 mmol/L (136-145) Potassium Level 4.1 mmol/L (3.5-5.1) Chloride Level 101 mmol/L (98-107) Carbon Dioxide Level 27 mmol/L (21-32) Anion Gap 6 (6-14) Blood Urea Nitrogen 12 mg/dL (8-26) Creatinine 0.6 mg/dL (0.7-1.3) Estimated GFR (Cockcroft-Gault) 143.2 BUN/Creatinine Ratio 20 (6-20) Glucose Level 100 mg/dL (70-99) Calcium Level 8.3 mg/dL (8.5-10.1) Total Bilirubin 1.8 mg/dL (0.2-1.0) Aspartate Amino Transf (AST/SGOT) 54 U/L (15-37) Alanine Aminotransferase (ALT/SGPT) 46 U/L (16-63) Alkaline Phosphatase 91 U/L (46-116) Total Protein 7.0 g/dL (6.4-8.2) Albumin 2.5 g/dL (3.4-5.0) Albumin/Globulin Ratio 0.6 (1.0-1.7) Medications Current Medications Sodium Chloride 1,000 ml @ 999 mls/hr Q1H1M IV Last administered on 21:54; Start 05/25/17 at 21:45; Stop 05/25/17 at 22:45; Status DC Ketorolac Tromethamine (Toradol) 15 mg 1X ONCE IV Last administered on 21:54; Start 05/25/17 at 21:45; Stop 05/25/17 at 21:46; Status DC Iohexol (Omnipaque 300 Mg/ml) 75 ml 1X ONCE IV Last administered on 22:16; Start 05/25/17 at 22:15; Stop 05/25/17 at 22:16; Status DC Info (Do NOT chart on this entry -- for MONITORING) 1 each PRN DAILY PRN MC SEE COMMENTS; Start 05/25/17 at 22:15; Stop 05/27/17 at 22:14 Ondansetron HCl (Zofran) 4 mg PRN Q8HRS PRN IV NAUSEA/VOMITING; Start at 01:00; Stop 05/27/17 at 00:59; Status DC Morphine Sulfate 2 mg PRN Q2HR PRN IV PAIN Last administered on 05/26/17 05: 29; Start 05/26/17 at 01:00; Stop 05/27/17 at 00:59; Status DC Sodium Chloride 1,000 ml @ 150 mls/hr Q6H40M IV Last administered on 23:11; Start 05/26/17 at 01:00; Stop 05/27/17 at 00:59; Status DC Spironolactone (Aldactone) 100 mg DAILY PO Last administered on 05/27/17 09: 17; Start 05/26/17 at 11:00 Nicotine (Nicoderm Cq 21mg) 1 patch DAILY TD Last administered on 05/27/17 09 :17; Start 05/26/17 at 13:00; Stop 06/02/17 at 12:59 Acetaminophen/ Hydrocodone Bitart (Lortab 5/325) 1 tab PRN Q4HRS PRN PO MODERATE PAIN Last administered on 05/27/17 09:17; Start 05/26/17 at 12:45 Morphine Sulfate 2 mg 1X ONCE IV ; Start 05/26/17 at 13:38; Stop 05/26/17 at 13:39; Status Cancel Morphine Sulfate 2 mg 1X ONCE IV Last administered on 05/26/17 13:45; Start 05/26/17 at 13:45; Stop 05/26/17 at 13:47; Status DC Lidocaine/Sodium Bicarbonate (Buffered Lidocaine 1%) 20 ml 1X ONCE IJ Last administered on 05/26/17 13:54; Start 05/26/17 at 14:00; Stop 05/26/17 at 14 :01; Status DC Albumin Human 100 ml @ 100 mls/hr 1X ONCE IV Last administered on 05/26/17 14:44; Start 05/26/17 at 14:35; Stop 05/26/17 at 15:34; Status DC Albumin Human 100 ml @ 100 mls/hr 1X ONCE IV Last administered on 05/26/17 15:29; Start 05/26/17 at 15:45; Stop 05/26/17 at 16:44; Status DC Acetaminophen (Tylenol) 650 mg PRN Q6HRS PRN PO MILD PAIN / TEMP Last administered on 05/26/17 20:50; Start 05/26/17 at 20:45 Active Scripts Active [place]ona 5-325 Tablet (Acetaminophen/Hydrocodone Bitart) 1 Each Tablet 1 Tab PO PRN Q6HRS PRN Aldactone (Spironolactone) 25 Mg Tablet 100 Mg PO DAILY 30 Days Vitals/I & O Vital Sign - Last 24 Hours 05/26/17 05/26/17 05/26/17 05/26/17 15:29 19:05 20:00 23:31 Temp 97.7 97.9 97.7 97.9 Pulse 103 95 Resp 16 16 B/P (MAP) 173/102 (125) 147/98 (114) Pulse Ox 94 98 O2 Delivery Room Air Room Air Room Air Room Air 05/27/17 05/27/17 05/27/17 05/27/17 01:58 03:00 07:00 07:43 Temp 98.6 97.8 98.6 97.8 Pulse 87 82 Resp 18 20 18 B/P (MAP) 143/89 (107) 120/84 (96) Pulse Ox 96 98 O2 Delivery Room Air Room Air Room Air Room Air 05/27/17 05/27/17 05/27/17 09:17 10:30 10:47 Temp 97.3 97.3 Pulse 90 Resp 18 B/P (MAP) 123/69 (87) Pulse Ox 97 O2 Delivery Room Air Room Air Room Air Intake and Output 05/26/17 05/26/17 05/27/17 15:00 23:00 07:00 Intake Total 1000 ml 2600 ml Output Total 9100 ml 650 ml Balance -9100 ml 1000 ml 1950 ml DARRELL AGUDELO MD May 27, 2017 15:30
[2017-05-27 15:37] VITALS: BP 116/73
[2017-05-27 19:52] VITALS: BP 126/98
[2017-05-27 23:38] VITALS: BP 142/102
[2017-05-28] MEDS: HYDROcodone/APAP 5/325MG 1 TAB TABLET PO PRN ×3 (00:51→12:04)
[2017-05-28] MEDS ORDERED: ONDANSETRON PF 4 MG/2 ML VIAL. IV PRN (03:30)
[2017-05-28] MEDS ORDERED: HYDROmorphone 2 MG/ML VIAL IV PRN (03:30)
[2017-05-28 03:35] VITALS: BP 143/101
[2017-05-28 07:00] VITALS: BP 118/87
[2017-05-28] MEDS: NICOTINE 21MG PATCH. TD SCH (08:50)
[2017-05-28] MEDS: SPIRONOLACTONE 25 MG TABLET PO SCH (08:50)
[2017-05-28 11:00] VITALS: BP 123/75
[2017-05-28] MEDS ORDERED: HYDR-971 PO (11:44)
--- NOTE | 2017-05-29 16:57 | DS ---
DATE OF DISCHARGE: 05/28/2017 CHIEF COMPLAINT: Abdominal pain. HOSPITAL COURSE: The patient is a 47-year-old gentleman with hep C and ETOH cirrhosis who requires frequent paracentesis for massive ascites. He once again was drained 9 liters on the during current admission. He was found with hyponatremia as well as severe PCM and subsequent leg swelling. Symptoms were controlled and the patient was discharged to home on on ongoing spironolactone. PHYSICAL EXAMINATION: VITAL SIGNS: Show a blood pressure of 123/75, heart rate of 86, respiratory rate at 18. He is afebrile. GENERAL: This is a 47-year-old malnourished gentleman, alert and oriented, no acute distress. LUNGS: Clear. HEART: Regular rate and rhythm. ABDOMEN: Distended, soft, nontender. EXTREMITIES: No edema. DISCHARGE DIAGNOSIS: Ascites secondary to hepatic cirrhosis. DISCHARGE DISPOSITION: To home. DISCHARGE CONDITION: Improved. DISCHARGE MEDICATIONS: Please refer to MAR. DISCHARGE INSTRUCTIONS: The patient will follow up with PCP as needed and present back to hospital when fluid reaccumulates. JESS CORNELIUS MD DR: KARLO/nts JOB#: [id number] / [id number]
== END 2017-05-28 14:52 | disposition home or self-care (01) | DRG 432 ==
LOC: ER 20:47 → 6 SOUTH 05-26 00:37
PROVIDERS: ADMIT Internal Medicine; ATTEND Internal Medicine
DX: K70.31 Alcoholic cirrhosis of liver with ascites (principal); E43 Unspecified severe protein-calorie malnutrition; D69.6 Thrombocytopenia, unspecified; E87.1 Hypo-osmolality and hyponatremia; S82.002A Unspecified fracture of left patella, initial encounter for closed fracture; B19.20 Unspecified viral hepatitis C without hepatic coma; F12.10 Cannabis abuse, uncomplicated; F17.210 Nicotine dependence, cigarettes, uncomplicated; K21.9 Gastro-esophageal reflux disease without esophagitis; K76.0 Fatty (change of) liver, not elsewhere classified; F10.20 Alcohol dependence, uncomplicated; X58.XXXA Exposure to other specified factors, initial encounter; Y93.89 Activity, other specified; Y92.89 Other specified places as the place of occurrence of the external cause; Y99.8 Other external cause status; Z68.24 Body mass index [BMI] 24.0-24.9, adult
CPT/HCPCS: 36415; 49083; 74177; 80053; 80307; 81001; 82140; 83690; 85025; 85610; 96361; 96374; J1170; J1885; J2270; J2405; J7030; P9046; Q9967; 99285-25; G0479

== ENCOUNTER 2018-01-24 08:56 | Emergency (ER) | payer OTHER, BC ==
[2018-01-24] MEDS: MORPHINE SULFATE 10 MG/ML VIAL. IM (10:18)
== END 2018-01-24 11:01 | disposition home or self-care (01) ==
LOC: ER 08:56
DX: S20.211A Contusion of right front wall of thorax, initial encounter (principal); I10 Essential (primary) hypertension; Z88.5 Allergy status to narcotic agent; W18.39XA Other fall on same level, initial encounter; Y93.89 Activity, other specified; Y99.8 Other external cause status; Y92.89 Other specified places as the place of occurrence of the external cause
CPT/HCPCS: 71101; 96372; 99284-25; J2270

== ENCOUNTER 2019-08-20 16:03 | Emergency (ER) | payer OTHER ==
[~2019-08-20] VITALS: Ht 177.8 cm; Wt 68.0 kg
[~2019-08-20 16:03] MED LIST changes: +AMOX1TAB10 PO; +HYDR-3164 PO; -HYDR-971 PO; +IBUP-1060 PO; +LACT20SO PO; +OXYC5TAB4 PO; +[UNRECOGNIZED DRUG - REMARK]
[2019-08-20 16:24] VITALS: BP 127/70
--- NOTE | 2019-08-20 17:13 | PHYS DOC ---
Past Medical History Past Medical History: Alcoholism, Hypertension, Hepatitis, Liver Disease Additional Past Medical Histor: HEPC, LIVER CIRRHOSIS, HERPES Past Surgical History: Other Additional Past Surgical Histo: paracentesis Smoking Status: Current Every Day Smoker Alcohol Use: Sober Drug Use: Marijuana, Other Adult General Chief Complaint Chief Complaint: SKIN PROBLEM HPI HPI Patient is a 49 year old male who presents to the emergency department with complaints of lesions to his upper back, right shoulder on bilateral hands, and face that have increased in severity over the last few weeks. 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 Pt states he currently takes ribavirin for treatment of Hepatitis C and reports that he is being evaluated at currently for the cryoglobulinemia. He denies any fever, itching, or injury. Pt states that the scabbed areas drained some clear fluid but denies any pus drainage. He currently rates his pain a 8/10 on the pain scale, he denies any alleviating factors. Review of Systems Review of Systems All other ROS is negative unless otherwise noted in HPI. Allergies Allergies Allergies Coded Allergies Type Severity Reaction Last Updated Verified codeine Allergy Intermediate 05/10/17 Yes Physical Exam Physical Exam See Above Constitutional: Well developed, well nourished, no acute distress, non-toxic appearance. [] HENT: Normocephalic, atraumatic, bilateral external ears normal, oropharynx moist, no oral exudates, nose normal. [] Eyes: PERRLA, EOMI, conjunctiva normal, no discharge. [] Neck: Normal range of motion, no stridor. [] Cardiovascular:Heart rate regular rhythm, no murmur [] Lungs & Thorax: Respirations even and unlabored, no retractions, no respiratory distress Skin: Warm, dry; scattered scabbed lesions noted to patient's upper back, R shoulder and face with surrounding erythema, no visible pustules or purulent drainage, areas appear to be infected picking sites. Extremities: No cyanosis, no clubbing, ROM intact, no edema. [] Neurologic: Alert and oriented X 3, no focal deficits noted. [] Psychologic: Affect normal, judgement normal, mood normal. [] Current Patient Data Vital Signs Vital Signs Date Time Temp Pulse Resp B/P (MAP) Pulse Ox O2 Delivery O2 Flow Rate FiO2 08/20/19 16:24 97.8 77 18 127/70 (89) 98 Room Air 97.8 EKG EKG [] Radiology/Procedures Radiology/Procedures [] Course & Med Decision Making Course & Med Decision Making Pertinent Labs and Imaging studies reviewed. (See chart for details) Quang is a 49-year-old male who presented to the emergency room with concerns of painful lesions across his upper back, right shoulder,. 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 He also reported history of hepatitis C that he is taking Ribavarin for treatment of. Physical exam revealed several areas of erythema with central scabbing concerning for infected picking lesions. Patient's vital signs are stable, he is afebrile. Will prescribe bactrim and keflex and recommend follow up with his specialist this week. Pt was also evaluated by Dr. Baez who agrees with POC. [] Dragon Disclaimer Dragon Disclaimer This electronic medical record was generated, in whole or in part, using a voice recognition dictation system. Departure Departure Impression: Primary Impression: Multiple superficial wounds with infection Disposition: HOME, SELF-CARE Condition: STABLE Referrals: UNKNOWN PCP NAME (PCP) Patient Instructions: Wound Infection, [id number] Additional Instructions: Fill the prescriptions and take them as directed. Take ibuprofen as needed for pain. Follow-up with your specialist at [facility] next week for further evaluation. Return to the ER if symptoms worsen or you develop a fever. Scripts Cephalexin (CEPHALEXIN) 500 Mg Capsule 1 CAP PO QID for 10 Days, #40 CAP 0 Refills Prov: MARIKA RAUSCH [employer] 08/20/19 Sulfamethoxazole/Trimethoprim (BACTRIM DS TABLET) 1 Each Tablet 1 TAB PO BID for 10 Days, #20 TAB 0 Refills Prov: MARIKA RAUSCH [employer] BUILDER 08/20/19 MARIKA RAUSCH [employer]BOARD BUILDER Aug 20, 2019 17:13
[2019-08-20] MEDS ORDERED: CEPH500C PO (17:15)
[2019-08-20] MEDS ORDERED: SULF1TAB24 PO (17:15)
== END 2019-08-20 17:30 | disposition home or self-care (01) ==
LOC: ER 16:03
DX: S00.80XA Unspecified superficial injury of other part of head, initial encounter (principal); S40.911A Unspecified superficial injury of right shoulder, initial encounter; S20.409A Unspecified superficial injuries of unspecified back wall of thorax, initial encounter; L08.9 Local infection of the skin and subcutaneous tissue, unspecified; I10 Essential (primary) hypertension; F17.200 Nicotine dependence, unspecified, uncomplicated; Z88.5 Allergy status to narcotic agent; X58.XXXA Exposure to other specified factors, initial encounter; Y93.89 Activity, other specified; Y92.89 Other specified places as the place of occurrence of the external cause; Y99.8 Other external cause status
CPT/HCPCS: 99283

== ENCOUNTER 2021-04-20 12:15 | Emergency (ER) | payer OTHER ==
[~2021-04-20] VITALS: Ht 177.8 cm; Wt 65.0 kg
[~2021-04-20 12:15] MED LIST changes: +CEPH500C PO; +SULF1TAB24 PO
--- NOTE | 2021-04-20 12:33 | PHYS DOC ---
Past Medical History Past Medical History: Alcoholism, Hypertension, Hepatitis, Liver Disease Additional Past Medical Histor: HEPC, LIVER CIRRHOSIS, HERPES Past Surgical History: Other Additional Past Surgical Histo: paracentesis Smoking Status: Current Every Day Smoker Alcohol Use: Sober Drug Use: Marijuana, Other General Adult EDM: Chief Complaint: OVERDOSE HPI: HPI: Patient is a 51 year old [f__sex] who presents with [] Review of Systems: Review of Systems: Constitutional: Denies fever or chills Eyes: Denies redness or eye pain HENT: Denies nasal congestion or sore throat Respiratory: Denies cough or shortness of breath Cardiovascular: Denies chest pain or palpitations GI: Denies abdominal pain, nausea, or vomiting : Denies dysuria or hematuria Musculoskeletal: Denies back pain or joint pain Integument: Denies rash or skin lesions Neurologic: Denies headache, focal weakness or sensory changes Complete systems were reviewed and found to be within normal limits, except as documented in this note. Heart Score: C/O Chest Pain: N/A Allergies: Allergies: Allergies Coded Allergies Type Severity Reaction Last Updated Verified codeine Allergy Intermediate 05/10/17 Yes Physical Exam: PE: Constitutional: Well developed, well nourished, no acute distress, non-toxic appearance HENT: Normocephalic, atraumatic Eyes: PERRL, EOMI, conjunctiva normal, no discharge Neck: Normal range of motion, no tenderness, supple Lungs & Thorax: No respiratory distress, equal chest rise and fall Abdomen: Soft, no tenderness Skin: Warm, dry, no erythema, no rash Back: No tenderness, no CVA tenderness Extremities: No tenderness, ROM intact, no edema Neurologic: Alert and oriented X 3, normal motor function, normal sensory function, no focal deficits noted Psychologic: Affect normal, judgment normal EKG: EKG: @1224 NSR at 71bpm, NO ST elevation, QRS 92ms, QT/QTc 430/467ms, LAFB Radiology/Procedures: Radiology/Procedures: [] Course & Med Decision Making: Course & Med Decision Making Pertinent Labs and Imaging studies reviewed. (See chart for details) Patient stable for discharge with outpatient follow-up with PCP. Discussed findings and plan with patient, who acknowledges understanding and agreement. Endy Disclaimer: Endy Disclaimer: This electronic medical record was generated, in whole or in part, using a voice recognition dictation system. Departure Departure Impression: Primary Impression: Overdose of opiate or related narcotic Qualified Codes: T40.601A - Poisoning by unspecified narcotics, accidental (unintentional), initial encounter Additional Impressions: Drug abuse Lactic acidosis Disposition: 01 HOME / SELF CARE / HOMELESS Condition: STABLE Referrals: UNKNOWN PCP NAME (PCP) Patient Instructions: Alcohol and Drug Addiction, Finding Treatment, Drug Abuse, FAQs, Lactic Acid, Lactate, Narcotic Overdose Additional Instructions: Please call [facility] at to seek help for your mental health and/or drug/alcohol abuse. Scripts Ondansetron (ONDANSETRON ODT) 4 Mg Tab.rapdis 1 TAB PO PRN Q6-8HRS PRN for NAUSEA, #16 TAB Prov: LEXIS JUNE DO 04/20/21 LEXIS JUNE DO Apr 20, 2021 12:33
[2021-04-20 13:12] LABS: BASO % 0 % (0-3); EOS % 1 % (0-3); HEMATOCRIT 44.3 % (39.0-53.0); HEMOGLOBIN 15.5 g/dL (13.0-17.5); LYMPH # 0.3 x10^3/uL (1.0-4.8); LYMPH % 9 % (24-48); MEAN CORPUSCULAR HEMOGLOBIN 33 pg (25-35); MEAN CORPUSCULAR HGB CONC 35 g/dL (31-37); MEAN CORPUSCULAR VOLUME 94 fL (79-100); MONO # 0.4 x10^3/uL (0.0-1.1); MONO % 10 % (0-9); NEUT # 3.1 x10^3/uL (1.8-7.7); NEUT % 80 % (31-73); PLATELET COUNT 147 x10^3/uL (140-400); RED BLOOD COUNT 4.71 x10^6/uL (4.30-5.70); RED CELL DISTRIBUTION WIDTH 13.7 % (11.5-14.5); WHITE BLOOD COUNT 3.9 x10^3/uL (4.0-11.0)
[2021-04-20 13:13] LABS: BILIRUBIN,URINE NEGATIVE (NEG); CLARITY,URINE CLEAR; COLOR,URINE YELLOW; NITRITE,URINE NEGATIVE (NEG); PROTEIN,URINE 100 mg/dL (NEG-TRACE); UROBILINOGEN,URINE 0.2 mg/dL (0.2 mg/dL)
[2021-04-20 13:17] LABS: CALCIUM 8.9 mg/dL (8.5-10.1); CREATININE 0.9 mg/dL (0.7-1.3); GFR 88.3; POTASSIUM 4.1 mmol/L (3.5-5.1)
[2021-04-20 13:20] LABS: BARBITURATES NEG (NEG); BENZODIAZEPINES NEG (NEG); CANNABINOIDS POS (NEG); COCAINE POS (NEG); METHADONE NEG (NEG); OPIATES NEG (NEG); PHENCYCLIDINE NEG (NEG)
[2021-04-20 13:21] LABS: AMPHETAMINE/METHAMPHETAMINE POS (NEG)
[2021-04-20 13:22] LABS: PROTHROMBIN TIME PATIENT 14.5 SEC (11.7-14.0)
[2021-04-20 13:23] LABS: BACTERIA,URINE 0 /HPF (0-FEW)
[2021-04-20 13:28] LABS: ACETAMIN < 2 mcg/ml (10-30); ETHANOL < 10 mg/dL (0-10); SALIC 0.5 mg/dL (2.8-20.0)
[2021-04-20] MEDS ORDERED: ONDANSETRON PF 4 MG/2 ML VIAL. ONE (13:31)
[2021-04-20 13:37] LABS: ALBUMIN 3.5 g/dL (3.4-5.0); ALBUMIN/GLOBULIN RATIO 0.6 (1.0-1.7); TOTAL BILIRUBIN 1.1 mg/dL (0.2-1.0)
[2021-04-20] MEDS ORDERED: ONDANSETRON PF 4 MG/2 ML VIAL. IVP ONE (13:45)
[2021-04-20] MEDS ORDERED: FAMOTIDINE 20 MG/2 ML VIAL IVP ONE (13:45)
[2021-04-20] MEDS ORDERED: IV NORMAL SALINE 500ML BAG 500 ML IV ONE (14:00)
[2021-04-20 14:27] LABS: % ATYL 1 % (0-0); % BANDS 11 % (0-9); % BASOS 1 % (0-3); % EOS 2 % (0-5); % LYMPHS 12 % (24-48); % MONOS 11 % (0-10); % SEGS 62 % (35-66); PLT ESTIMATE ADEQUATE (ADEQUATE)
[2021-04-20 15:01] VITALS: BP 108/69
[2021-04-20] MEDS ORDERED: ONDA4TAB12 PO (15:16)
--- NOTE | 2021-04-20 16:53 | EKG ---
[facility] [address] [place] [address] Test Date: 2021-04-20 Test Time: 12:24:43 Pat Name: DOM MON Department: Room: Gender: M Clinical Assistant: [id number] : 1970 Requested By: LEXIS JUNE Order Number: [id number] Reading MD: Rashi Valverde MD Measurements Intervals [place] Rate: 71 P: 66 [place]: 144 QRS: -34 QRSD: 92 T: 44 QT: 430 QTc: 467 Interpretive Statements SINUS RHYTHM Electronically Signed On 04-22-2021 10:35:13 CDT by Rashi Valverde MD
== END 2021-04-20 15:58 | disposition home or self-care (01) ==
LOC: ER 12:15
DX: K72.90 Hepatic failure, unspecified without coma (principal); T40.601A Poisoning by unspecified narcotics, accidental (unintentional), initial encounter; E87.2 Acidosis; F15.10 Other stimulant abuse, uncomplicated; F12.10 Cannabis abuse, uncomplicated; F10.20 Alcohol dependence, uncomplicated; I10 Essential (primary) hypertension; F17.200 Nicotine dependence, unspecified, uncomplicated; Z88.5 Allergy status to narcotic agent; Y90.0 Blood alcohol level of less than 20 mg/100 ml; Y92.89 Other specified places as the place of occurrence of the external cause
CPT/HCPCS: 36415; 80053; 80307; 80329; 81001; 82140; 83605; 83735; 85007; 85025; 85610; 85730; 93005; 96361; 96374; 96375; 99285; G0480; J2405; J3490; J7040